=== PATIENT | female | born 1985 | race Caucasian/White ===

== ENCOUNTER 2018-02-14 19:08 | Emergency (ER) | payer BC ==
[~2018-02-14] VITALS: Ht 170.2 cm; Wt 95.5 kg
[~2018-02-14 19:08] MED LIST: BACTRIM DS 8001 TAB PO; CELEXA40 MG PO; CEPHALEXIN250 M1 PO; CEPHALEXIN500 M1 PO; CIPRO 500MG TA500 MG PO; EFFEXOR 75M75 MG/TAB PO; LORTAB 5/500 501 TAB PO; MOTRIN 800800 MG/TAB PO; NAPROSYN500 MG PO; NIFEDIPINE ER30 MG PO; NO HOME MEDICATIONS; NORCO 325 MG-51 TAB PO; NORCO 325 MG-7.1 TAB PO; PERCOCET 325 MG1 TA2 PO; PERCOCET 5/321 UDTAB PO; RECLIPSEN 0.151 TAB PO; SILVADENE 400G400 GM TP; SPRINTEC 35 MCG1 TAB PO; VICODIN 5/5001 UDTAB PO; WELLBUTRIN XL150 MG PO
[2018-02-14 19:10] VITALS: BP 152/86; TEMP 98.3
[2018-02-14] MEDS ORDERED: ADIPEX-P37.5 MG PO (19:33)
[2018-02-14 21:43] VITALS: PULSE 79
== END 2018-02-14 21:44 | disposition home or self-care (01) ==
LOC: COL.ER 19:08
DX: S61.011A Laceration without foreign body of right thumb without damage to nail, initial encounter (principal); J45.909 Unspecified asthma, uncomplicated; Z23 Encounter for immunization; Z87.891 Personal history of nicotine dependence; W26.8XXA Contact with other sharp object(s), not elsewhere classified, initial encounter; Y92.009 Unspecified place in unspecified non-institutional (private) residence as the place of occurrence of the external cause

== ENCOUNTER 2023-05-20 17:00 | Emergency (ER) | payer BC ==
[~2023-05-20] VITALS: Ht 170.2 cm; Wt 99.1 kg
[~2023-05-20 17:00] MED LIST changes: +ADIPEX-P37.5 MG PO
[2023-05-20 17:28] VITALS: TEMP 97.7
[2023-05-20 19:06] LABS: COLLECTION METHOD CLEAN CATCH
[2023-05-20 19:30] LABS: PH 5.5 (5.0-8.5); URINE APPEARANCE Cloudy (CLEAR/HAZY); URINE BLOOD 3+ (NEGATIVE); URINE COLOR Yellow (YELLOW); URINE GLUCOSE Negative (NEGATIVE); URINE KETONE Negative (NEGATIVE); URINE NITRATE Negative (NEGATIVE); URINE PROTEIN(semi-quant) 1+ (NEGATIVE); URINE UROBILINOGEN 0.2 E.U/dL (0.2-1.0)
[2023-05-20 19:31] LABS: BILIRUBIN,TOTAL 0.3 mg/dL (0.2-1.2); CALCIUM 9.4 mg/dL (8.4-10.2); CREATININE, serum 0.87 mg/dL (0.57-1.11); POTASSIUM 4.1 mmol/L (3.5-4.5); TOTAL PROTEIN 7.5 gm/dL (6.2-8.1)
[2023-05-20 19:41] LABS: SQUAMOUS EPITHELIAL 0-2 /hpf (0-10); URINE BACTERIA Moderate /hpf (NONE SEEN); URINE RBC >50 /hpf (0-2)
[2023-05-20 19:50] LABS: BASO # 0.1 K/mm3 (0.0-0.2); BASO % 0.4 % (0.0-2.0); EOS % 0.3 % (0.0-4.0); GRAN # 10.9 K/mm3 (1.4-6.5); GRAN % 80.6 % (42.2-75.2); HEMATOCRIT 43.7 % (37.0-47.0); HEMOGLOBIN 14.8 g/dl (12.5-16.0); LYMPH # 1.9 K/mm3 (1.2-3.4); LYMPH % 14.4 % (20.0-51.0); MEAN CELL VOLUME 95 fl (80.0-100.0); MEAN CORPUSCULAR HEMOGLOBIN 32 pg (27-31); MEAN CORPUSCULAR HGB CONC 34 g/dl (33.0-37.0); MEAN PLATELET VOLUME 10.9 fl (7.4-10.4); MONO # 0.5 K/mm3 (0.1-0.6); MONO % 3.9 % (1.7-9.3); PLATELET COUNT 303 K/mm3 (130-400); REDCELL DISTRIBUTION WIDTH-CV 11.8 % (11.5-14.5)
[2023-05-20] MEDS ORDERED: CEPHALEXIN500 M1 PO (22:09)
[2023-05-20] MEDS ORDERED: PERCOCET 325 MG1 TA2 PO (22:09)
[2023-05-20 22:30] VITALS: BP 124/89; PULSE 91
[2023-05-21] MEDS ORDERED: VITAMIND3 5000 PO (16:51)
[2023-05-21] MEDS ORDERED: GLUCOPHAGE1000 MG PO (16:51)
[2023-05-21] MEDS ORDERED: SPRINTEC 35 MCG1 TAB PO (16:52)
[2023-05-21] MEDS ORDERED: CLARITIN 1010 MG/TAB PO (16:53)
[2023-05-21] MEDS ORDERED: HCTZ12.5TAB PO (16:53)
== END 2023-05-20 22:30 | disposition home or self-care (01) ==
LOC: COL.ER 17:00
PROVIDERS: Physician Assistant
DX: N13.2 Hydronephrosis with renal and ureteral calculous obstruction (principal); Q61.5 Medullary cystic kidney
CPT/HCPCS: J0696; J1885; J2270; J7030; Q9967